=== PATIENT | female | born 1945 | race Caucasian/White ===

== ENCOUNTER → 2024-02-16 15:50 | Outpatient (REF) | payer OTHER, SELFPAY | LOC: RAD 15:50 | PROVIDERS: ATTENDING PHYSICIAN Student in an Organized Health Care Education/Training Program; FAMILY PHYSICIAN Family Medicine | DX: N18.32 Chronic kidney disease, stage 3b (principal) | CPT/HCPCS: 76770 ==

== ENCOUNTER → 2024-11-05 06:31 | Outpatient (REF) | payer OTHER, SELFPAY | LOC: RAD 06:31 | PROVIDERS: ATTENDING PHYSICIAN Family Medicine | DX: I25.10 Atherosclerotic heart disease of native coronary artery without angina pectoris (principal); E78.2 Mixed hyperlipidemia; Z85.038 Personal history of other malignant neoplasm of large intestine; N18.32 Chronic kidney disease, stage 3b; I10 Essential (primary) hypertension; I73.9 Peripheral vascular disease, unspecified | CPT/HCPCS: 93922; 93925 ==

== ENCOUNTER → 2025-02-17 09:49 | Outpatient (REF) | payer OTHER, SELFPAY | LOC: RCS 09:49 | PROVIDERS: ATTENDING PHYSICIAN Nuclear Medicine Nuclear Cardiology; FAMILY PHYSICIAN Family Medicine | DX: I10 Essential (primary) hypertension (principal); I25.10 Atherosclerotic heart disease of native coronary artery without angina pectoris | CPT/HCPCS: 93306 ==

== ENCOUNTER → 2025-02-24 06:41 | Outpatient (REF) | payer OTHER, SELFPAY | LOC: RAD 06:41 | PROVIDERS: ATTENDING PHYSICIAN Surgery Vascular Surgery; FAMILY PHYSICIAN Family Medicine | DX: I71.43 Infrarenal abdominal aortic aneurysm, without rupture (principal) | CPT/HCPCS: 76770 ==